=== PATIENT | male | born 1985 | race African-American/Black ===

== ENCOUNTER 2024-10-19 10:06 | Emergency (ER) | payer MEDICAID, SELFPAY ==
--- NOTE | ~2024-10-19 | CT_ITS ---
EXAMINATION: CT ABDOMEN AND PELVIS WITH CONTRAST CLINICAL INFORMATION: Left lower quadrant abdominal pain. COMPARISON: None available. TECHNIQUE: Multidetector volumetric images were obtained from the superior aspect of the liver through the pubic symphysis following administration 85 mL of Omnipaque 350 intravenous contrast. Sagittal and coronal reformatted images were obtained on the technologist's workstation. Oral contrast: No This CT examination was performed using dose optimization techniques as appropriate, variously including the following: *Automated exposure control *Adjustment of mA and/or kV according to patient size (this includes techniques or standardized protocols for targeted exams where dose is matched to indication/reason for exam; i.e. extremities or head) *Use of iterative reconstruction technique FINDINGS: LUNG BASES: The visualized lung bases are unremarkable. LIVER, GALLBLADDER, AND BILIARY TREE: The liver is normal in size, shape, and attenuation. No focal hepatic lesion or biliary ductal dilatation is present. The gallbladder is unremarkable with no evidence of radiopaque gallstones, gallbladder wall thickening, or obvious pericholecystic inflammatory changes. PANCREAS: Unremarkable. SPLEEN: Unremarkable. ADRENAL GLANDS: Unremarkable. KIDNEYS AND URETERS: The kidneys are normal in size, shape, and attenuation. No hydronephrosis, hydroureter, or calculi seen. No perinephric stranding. BLADDER: Unremarkable. GASTROINTESTINAL TRACT: There is colonic wall thickening hyperemia involving the mid ascending colon, hepatic flexure, transverse colon, splenic flexure, and proximal descending colon. Findings are consistent with segmental colitis. There are small associated colonic mesenteric lymph nodes. There is mild hyperemia of the colonic mesentery involving the affected segments. A normal appendix is visualized. Small bowel is normal in caliber and course. No wall thickening or inflammation. No rectal abnormality. The stomach is decompressed. The duodenal sweep appears normal. ABDOMINAL WALL: No significant hernia is appreciated. LYMPH NODES: As above. No pathologic lymphadenopathy is evident. VASCULAR: Unremarkable. PELVIC VISCERA: The prostate and seminal vesicles are unremarkable. OSSEOUS STRUCTURES: No suspicious lytic or blastic bone lesions. Normal hip and SI joints. CT/CT abdomen pelvis w IV con IMPRESSION: 1. Colonic wall thickening and hyperemia of the ascending, transverse, and proximal descending colon consistent with segmental colitis. This could be infectious or inflammatory. 2. Additional ancillary findings as discussed. Electronically signed by: Mike Pruitt MD 10/19/2024 01:12 PM EDT RP
[2024-10-19 10:10] VITALS: BP 120/82; PULSE 91; RESP 18; TEMP 36.3; O2SAT 97; BMI 31.4
[2024-10-19 11:19] LABS: MANUAL DIFF FLAG NO
--- NOTE | 2024-10-19 11:22 | ED.ABDPAIN ---
HPI - Abdominal Pain General Chief Complaint: Abdominal Pain Stated Complaint: Stomach Pain Time Seen by Provider: 10/19/24 12:12 Source: patient and old records reviewed Mode of arrival: ambulatory Limitations: no limitations History of Present Illness ED Provider: WILLIAM GARCIA narrative: 39 yo male with no PMH here with c/o 2 days of low back pain low abd pain and diarrhea with subj fevers but no bloody stools. Started after eating a quesadilla but family ate it as well and no illness. No recent travel, procedures, abx use. He has never had anything like this before. MD elicited complaint: abdominal pain Pertinent past history: none Onset (ago): day(s) (2) Pain Consistency: constant Location: suprapubic Severity: moderate Quality: cramping and aching Migration to: no migration Exacerbating factors: movement Relieving factors: nothing Context: possible food poisoning Associated symptoms: nausea and diarrhea Related Data Previous Rx's ?Medication ?Instructions ?Recorded hydrocodone 5 mg-acetaminophen 325 1 tab PO Q6H PRN pain #10 tabs 10/19/24 mg tablet ondansetron 4 mg disintegrating 4 mg PO Q8H PRN nausea and 10/19/24 tablet vomiting #20 tabs Allergies Allergy/AdvReac Type Severity Reaction Status Date / Time No Known Allergies Allergy Verified 10/19/24 10:15 Review of Systems Review of Systems Constitutional : No Weight loss, pos Fever, pos Chills ENT/Mouth : No sore throat, No Rhinorrhea Eyes: No Swelling, No Redness Cardiovascular : No Chest Pain, No SOB, NoEdema Respiratory : No Cough, No Sputum, No Wheezing Gastrointestinal : Positive Nausea, no Vomiting, positive Diarrhea, positive abdominal Pain, No Hematochezia, No Melena Genitourinary : No Dysuria, No Urinary Frequency, No Hematuria, No Urgency Musculoskeletal : No joint pain, No Myalgias, No Joint Swelling Skin : No Skin Lesions, No rash Neuro : No Weakness, No Numbness, No Dizziness, No Headache All other systems reviewed and are negative. [facility] Past Medical History Attestation statement: The following information was validated with the patient. Social History Social History Advance Directives: No Advance Directives Information Provided: Yes Do you have a plan to hurt others: No Plan Physical Exam ED Vital Signs: Vital Signs - 24 hr 10/19/24 10:10 10/19/24 12:21 Temperature 97.3 F Pulse Rate 91 76 Respiratory Rate 18 14 Blood Pressure 120/82 114/81 Pulse Oximetry 97 100 Oxygen Delivery Method Room Air Room Air BMI result Body Mass Index 31.4 Appearance: Alert. Oriented X3. No acute distress. Eyes: Pupils equal, round and reactive to light. ENT: Pharynx normal. Neck: Normal inspection. Neck supple. CVS: Normal heart rate and rhythm. Pulses normal. Respiratory: No respiratory distress. Breath sounds normal. Abdomen: Soft and moderate Skin: Skin warm and dry. Normal skin color. Normal skin turgor. Extremities: No lower extremity edema. No calf ttp Neuro: Oriented X 3. No motor deficit. No sensory deficit. CN2-12 intact Course Course Course Narrative: 10/19/24 1122 SARAY Garcia This is a Rapid Medical Examination (RME) performed by Misael Cali PA-C in triage. Full HPI, ROS, assessment and treatment plan per primary provider in the Main ED. Hx: 39 yo M here for eval of low back pain, nonbloody diarrhea, subjective fevers/chills, and dec PO intake x3 days. no N/V. no abd surgeries. Plan: labs, UA, viral swabs Medical Decision Making Medical Decision Making [facility] Narrative: 39 yo male with no PMH here with c/o LLQ pain and nonbloody stools with subj fevers x 2 days after eating quesadilla. At this time will obtain labs, CT scan and start on IVF and supportive medications. Differential Diagnosis Differential Diagnoses: The differential diagnosis associated with the presentation includes colitis, viral syndrome, diverticulitis Admission/Observation Consideration of admission/observation: Escalation of care including admission/observation considered no fevers today, no blood stools no wbc count will provide supportive care and hold off abx Lab Data [facility] Lab Attestation statement: I reviewed the patient's lab results. 10/19/24 11:14 10/19/24 11:14 Labs: Lab Results 10/19/24 10/19/24 Range/Units 11:14 12:17 WBC 8.1 (4.8-10.8) X10*3/uL RBC 4.99 (4.60-5.80) X10*6/uL Hgb 15.5 (14.0-18.0) g/dl Hct 43.6 (42.0-52.0) % MCV 87.4 (80.0-98.0) fL MCH 31.1 (27.0-33.0) pg MCHC 35.6 (31.0-36.0) g/dl RDW 11.8 (11.0-16.0) % Plt Count 238 (160-400) X10*3/uL MPV 8.9 L (9.4-12.4) fL Immature Gran % (Auto) 0.2 (0.0-0.4) % Neut % (Auto) 71.8 (45-73) % Lymph % (Auto) 14.1 L (20-40) % Ralls % (Auto) 8.3 (2-11) % Eos % (Auto) 4.6 H (0-4) % Baso % (Auto) 1.0 (0-2) % Lymph # (Auto) 1.1 L (1.2-4.9) X10*3/uL Ralls # (Auto) 0.7 (0.1-1.2) X10*3/uL Eos # (Auto) 0.4 (0.0-0.4) X10*3/uL Baso # (Auto) 0.1 (0.0-0.2) X10*3/uL Abs Immat Gran (auto) 0.02 (0.00-0.03) X10*3/uL Absolute Neuts (auto) 5.8 (2.0-8.3) x10*3/uL Absolute Nucleated RBC 0.000 (0.0-0.012) X10*3/uL Nucleated RBC % (auto) 0.0 (0.0-0.2) /100WBC Sodium 140 (135-145) mmol/L Potassium 4.4 (3.3-5.1) mmol/L Chloride 108 (96-108) mmol/L Carbon Dioxide 26 (22-29) mmol/L Anion Gap 10 L (12-20) BUN 10 (9-16) mg/dL Creatinine 0.80 (0.5-1.4) mg/dL Estim Creat Clear Calc 131.6 Estimated GFR > 60 Random Glucose 87 (60-115) mg/dL Calcium 9.3 (8.4-10.2) mg/dL Magnesium 2.0 (1.6-2.6) mg/dL Total Bilirubin 0.6 (0.0-1.0) mg/dL Direct Bilirubin 0.3 (0.0-0.5) mg/dL AST 33 (5-37) U/L ALT 54 H (0-40) U/L Alkaline Phosphatase 48 (39-117) U/L Total Protein 7.6 (6.5-8.0) g/dL Albumin 4.6 (3.5-5.0) g/dL Lipase 83 H (8-78) U/L Influenza Type A (PCR) NEGATIVE (Negative) Influenza Type B (PCR) NEGATIVE (Negative) RSV RNA Qual (PCR) NEGATIVE (Negative) SARS-CoV-2 RNA (RT-PCR) NEGATIVE (Negative) Independent Interpretation I performed an independent interpretation of an: CT Scan (colitis) Radiology Impression Discussion of test interpretation with radiology: I have reviewed the radiologist's reading. Prescription Management I considered prescription management with: Pain Medication, Antibiotic and Other Medications Administered Discontinued Medications Generic Name Dose Route Start Last Admin Trade Name Freq PRN Reason Stop Dose Admin Lactated Ringer's 1,000 mls @ 999 mls/hr 10/19/24 12:23 10/19/24 12:48 Lr IV 10/19/24 13:23 999 mls/hr .Q1H1M ONE Administration Iohexol 85 ml 10/19/24 12:56 10/19/24 12:56 Iohexol 350 Mg/Ml 100 Ml Infus..Btl IV 10/19/24 12:57 85 ml ONCE ONE Administration Ketorolac Tromethamine 15 mg 10/19/24 12:23 10/19/24 12:47 Ketorolac Tromethamine 15 Mg/Ml Vial IVPUSH 10/19/24 12:24 15 mg ONCE ONE Administration Discharge Plan Discharge Clinical Impression: Colitis Patient Disposition: Home, Self-Care Instructions: Acute Diarrhea (ED), Colitis (ED) Additional Instructions: drink plenty of fluids bland diet for 3 days stay hydrated return for fevers, bloody stools, severe pain this should be self limiting given you are healthy Prescriptions: New hydrocodone-acetaminophen 5-325 mg tablet 1 tab PO Q6H PRN (Reason: pain) Qty: 10 0RF Rx Instructions: partial fill okay; Partial Fill upon patient request. ondansetron 4 mg tablet,disintegrating 4 mg PO Q8H PRN (Reason: nausea and vomiting) Qty: 20 0RF Print Language: Bhutanese
[2024-10-19 11:24] LABS: Basophils Absolute Auto 0.1 X10*3/uL (0.0-0.2); Eosinophils Absolute Auto 0.4 X10*3/uL (0.0-0.4); Eosinophils Percent Auto 4.6 % (0-4); Hematocrit 43.6 % (42.0-52.0); Hemoglobin 15.5 g/dl (14.0-18.0); Imm Gran Abs Auto 0.02 X10*3/uL (0.00-0.03); Imm Gran Pct Auto 0.2 % (0.0-0.4); Lymphocytes Absolute Auto 1.1 X10*3/uL (1.2-4.9); Lymphocytes Percent Auto 14.1 % (20-40); Mean Corpuscular HGB Conc 35.6 g/dl (31.0-36.0); Mean Corpuscular Hemoglobin 31.1 pg (27.0-33.0); Mean Corpuscular Volume 87.4 fL (80.0-98.0); Mean Platelet Volume 8.9 fL (9.4-12.4); Monocytes Absolute Auto 0.7 X10*3/uL (0.1-1.2); Monocytes Percent Auto 8.3 % (2-11); Neutrophils Absolute Auto 5.8 x10*3/uL (2.0-8.3); Neutrophils Percent Auto 71.8 % (45-73); Platelet Count 238 X10*3/uL (160-400); Red Blood Count 4.99 X10*6/uL (4.60-5.80); Red Cell Distribution Width 11.8 % (11.0-16.0); White Blood Count 8.1 X10*3/uL (4.8-10.8)
[2024-10-19 11:45] LABS: Alanine Aminotransferase 54 U/L (0-40); Albumin Level 4.6 g/dL (3.5-5.0); Anion Gap 10 (12-20); Aspartate Amino Transferase 33 U/L (5-37); Bilirubin Direct 0.3 mg/dL (0.0-0.5); Bilirubin Total 0.6 mg/dL (0.0-1.0); Blood Urea Nitrogen 10 mg/dL (9-16); Calcium 9.3 mg/dL (8.4-10.2); Carbon Dioxide 26 mmol/L (22-29); Chloride 108 mmol/L (96-108); Creatinine Clr Calc Pharmacy 131.6; Estimated Glomerular Filt Rate > 60; Glucose Random 87 mg/dL (60-115); Lipase 83 U/L (8-78); Potassium 4.4 mmol/L (3.3-5.1); Sodium 140 mmol/L (135-145); Total Protein 7.6 g/dL (6.5-8.0)
[2024-10-19 11:56] LABS: Alkaline Phosphatase 48 U/L (39-117)
[2024-10-19 12:21] VITALS: BP 114/81; PULSE 76; RESP 14; O2SAT 100
[2024-10-19] MEDS: Ketorolac Tromethamine 15 MG/ML VIAL IVPUSH (12:47)
[2024-10-19] MEDS: Lactated Ringers 1,000 ML 999 ML IV (12:48)
[2024-10-19] MEDS: iohexoL 350 MG/ML 100 ML INFUS..BTL 85 ML IV (12:56)
[2024-10-19 13:10] LABS: Influenza A PCR NEGATIVE (Negative); Influenza B PCR NEGATIVE (Negative); Resp Syncy Virus RNA Qual PCR NEGATIVE (Negative); SARS COV2 PCR INHOUSE NEGATIVE (Negative)
[2024-10-19 14:01] VITALS: BP 114/81; PULSE 76; RESP 14; TEMP 36.8; O2SAT 100
== END 2024-10-19 14:01 | disposition home or self-care (01) ==
PROVIDERS: Physician Assistant Medical; Emergency Provider Emergency Medicine
DX: K52.9 Noninfective gastroenteritis and colitis, unspecified (principal); R10.2 Pelvic and perineal pain; R11.2 Nausea with vomiting, unspecified; Z03.818 Encounter for observation for suspected exposure to other biological agents ruled out; Z79.899 Other long term (current) drug therapy
CPT/HCPCS: 0241U; 36415; 74177; 80053; 82248; 83690; 83735; 85025; 96361; 96374; 99284; J1885; J7120; Q9967

== ENCOUNTER → 2024-10-19 12:23 | Outpatient (BNV) | payer MEDICAID, SELFPAY | PROVIDERS: Emergency Provider Emergency Medicine; Visit Provider Radiology Diagnostic Radiology | DX: K51.918 Ulcerative colitis, unspecified with other complication (principal) | CPT/HCPCS: 74177 ==

== ENCOUNTER 2024-12-17 09:31 | Emergency (ER) | payer OTHER, SELFPAY ==
[2024-12-17 09:50] VITALS: BP 128/81; PULSE 76; RESP 18; TEMP 37; O2SAT 99; BMI 31.7
--- NOTE | 2024-12-17 11:10 | ED_ITS ---
HPI - General Adult General Chief complaint: Skin/Abscess/Foreign Body Stated complaint: Rash around whole body Time Seen by Provider: 12/17/24 10:26 Source: patient, RN notes reviewed and old records reviewed Mode of arrival: ambulatory Limitations: no limitations History of Present Illness ED Provider: Opal GARCIA narrative: 39-year-old male presents for evaluation of a rash to his left arm and bilateral legs. The rash has been there for about 4 days and is itchy. He denies any pain, denies any fevers or chills pain He denies being in the [place]. He works as a transporter driver for [employer] He notes that he has had a similar rash about 5 years ago while in [place] and was told it was ?heat rash. ? He was prescribed a topical steroid with good improvement in his rash. He also complains of mild left ear pain. Denies any drainage from the ear, denies sticking anything in the ear. He has not been swimming Related Data Previous Rx's ?Medication ?Instructions ?Recorded hydrocodone 5 mg-acetaminophen 325 1 tab PO Q6H PRN pa in #10 tabs 10/19/24 mg tablet ondansetron 4 mg disintegrating 4 mg PO Q8H PRN nausea and 10/19/24 tablet vomiting #20 tabs triamcinolone acetonide 0.5 % 1 appl topical BID #15 g angela 12/17/24 topical cream Allergies Allergy/AdvReac Type Severity Reaction Status Date / Time No Known Allergies Allergy Verified 12/17/24 09:53 Review of Systems Constitutional: Constitutional: Denies body ache(s), Denies chills, Denies fever(s) and Denies headache(s) Eyes: Eyes: Denies blurry vision ENT: Denies vertigo, Denies dizziness, Denies dry mouth, Denies ear discharge, Reports otalgia and Denies headache(s) Cardiovascular: Cardiovascular: Denies chest pain and Denies dyspnea on exertion Respiratory: Respiratory: Denies cough and Denies dyspnea on exertion Gastrointestinal: Gastrointestinal: Denies abdominal pain Integumentary/Breasts: Skin/Breast: Reports erythema and Reports rash Neurologic: Denies confusion, Denies vertigo, Denies dizziness and Denies headache(s) Psychiatric: Psychiatric: Denies anxiety and Denies confusion [facility] Social History Social History Advance Directives: No Advance Directives Information Provided: Yes Physical Exam ED Vital Signs: Vital Signs - 24 hr 12/17/24 09:50 12/17/24 11:20 Temperature 98.6 F 98.6 F Pulse Rate 76 76 Respiratory Rate 18 18 Blood Pressure 128/81 128/81 Pulse Oximetry 99 99 Oxygen Delivery Method Room Air Room Air BMI result Body Mass Index 31.7 Const General: No confusion Nutritional Appearance: well nourished Orientation/consciousness: No confusion HENMT Other: There is no mastoid tenderness bilaterally, no pre or postauricular edema Head: Yes normocephalic and Yes atraumatic Ears: external ears normal, TM's normal bilaterally and EAC's normal Eyes Eyelids: Yes eyelids normal Conjunctivae: conjunctivae normal Sclerae: sclerae normal Corneas: corneas normal Pupils: Equal, round and reactive pupils present EOM: EOMs intact bilaterally Neck Neck: Yes full ROM Resp Effort & Inspection: normal respiratory effort, able to speak in complete sentences and not labored Skin Other: Maculopapular rash noted to the left forearm in the crease of the elbow, right groin. No significant excoriations, no drainage, no fluctuance or induration. General skin exam: elasticity normal Neuro General: No confusion Cranial nerves: Yes Equal, round and reactive pupils present and Yes Bilaterally intact EOM present Cognition (Neuro): normal cognition Extrem Other: Moving all extremities well without any obvious deformities Medical Decision Making Medical Decision Making MDM Narrative: 39-year-old male presents for evaluation of a rash. His rash is consistent with a inflammatory dermatitis, no evidence of infectious process. He reports that his similar to her previous he rash he has had that resolved with topical steroids. We will treat the same. He does have left ear pain but no evidence of otitis media, otitis externa or mastoiditis. I did encourage the patient to use a few drops of white vinegar twice a day if his pain continues and return precautions were given Differential Diagnosis Differential Diagnoses: The differential diagnosis associated with the presentation includes Dermatitis Cellulitis Contact dermatitis Eczema Psoriasis Otitis media Otitis externa Mastoiditis Discharge Plan Discharge Clinical Impression: Acute dermatitis Patient Disposition: Home, Self-Care Instructions: Dermatitis (ED) Additional Instructions: Your rash is consistent with a dermatitis which could be a heat rash. You may use the triamcinolone twice daily for 1 week. Return to the ER if you develop any new or worsening symptoms, especially fevers. There was no obvious infection in your ear or around the ear. Prescriptions: New triamcinolone acetonide 0.5 % cream 1 appl topical BID Qty: 15 0RF No Action hydrocodone-acetaminophen 5-325 mg tablet 1 tab PO Q6H PRN (Reason: pain) Qty: 10 0RF Rx Instructions: partial fill okay; Partial Fill upon patient request. ondansetron 4 mg tablet,disintegrating 4 mg PO Q8H PRN (Reason: nausea and vomiting) Qty: 20 0RF Stand Alone Forms: Work/School Release Interventions: ED Discharge Assessment Last Done: 12/17/24 11:20 Discharge Date/Time: 12/17/24 11:20 Print Language: Greenlandic
[2024-12-17 11:20] VITALS: BP 128/81; PULSE 76; RESP 18; TEMP 37; O2SAT 99
== END 2024-12-17 11:20 | disposition home or self-care (01) ==
PROVIDERS: Emergency Provider Emergency Medicine Emergency Medical Services
DX: L30.9 Dermatitis, unspecified (principal); R21 Rash and other nonspecific skin eruption
CPT/HCPCS: 99282; 99283

== ENCOUNTER 2024-12-21 07:37 | Emergency (ER) | payer OTHER, SELFPAY ==
--- NOTE | ~2024-12-21 | CT_ITS ---
EXAMINATION: CT TEMPORAL BONES. CLINICAL INFORMATION: Left ear pain, mastoid tip. COMPARISON: No priors. TECHNIQUE: Contiguous axial images through the temporal bones with bone algorithm. Sagittal and coronal reformatted images acquired. This CT examination was performed using dose optimization techniques as appropriate, variously including the following: *Automated exposure control *Adjustment of mA and/or kV according to patient size (this includes techniques or standardized protocols for targeted exams where dose is matched to indication/reason for exam; i.e. extremities or head) *Use of iterative reconstruction technique. DLP: 200 mGy centimeter. FINDINGS: RIGHT TEMPORAL BONE: External auditory canal demonstrates a focal serum and the cartilage/osseous segment junction. Tympanic membrane: No thickened. Tympanic cavity: Well pneumatized and aerated. Ossicles: Intact and articulated. Sinus tympani: Aerated. Oval window and round window: Aerated. Tegmen tympani: Intact. Scutum: Intact. Labyrinthine, geniculate, tympanic and mastoid segments of the facial nerve canal: Intact. Aditus at antrum and mastoid antrum: Aerated. Mastoid air cells: Well pneumatized and aerated. Cochlear: Intact and normal 2 1/2 turns. Vestibule and semicircular canals: Intact. Internal auditory canal: Intact and not enlarged. Carotid canal: Intact. Jugular foramen: Intact. Cochlear and vestibular aqueducts: Not enlarged. Temporomandibular joint: Intact. LEFT TEMPORAL BONE: External auditory canal: Aerated. No focal stenosis or gross masses.. Tympanic membrane: No thickened. Tympanic cavity: Well pneumatized and aerated. Ossicles: Intact and articulated. Sinus tympani: Aerated. Oval window and round window: Aerated. Tegmen tympani: Intact. Scutum: Intact. Labyrinthine, geniculate, tympanic and mastoid segments of the facial nerve canal: Intact. Aditus at antrum and mastoid antrum: Aerated. Mastoid air cells: Well pneumatized. Minimal air-fluid levels in the mastoid tip.. Cochlear: Intact and normal 2 1/2 turns. Vestibule and semicircular canals: Intact. Internal auditory canal: Intact and not enlarged. Carotid canal: Intact. Jugular foramen: Intact. Cochlear and vestibular aqueducts: Not enlarged. Temporomandibular joint: Intact. ANCILLARY FINDINGS: No gross masses or fluid collections in the intraconal or extraconal compartments of the orbits. The eyeballs are intact. 7 mm retention cysts versus polyp, left frontal ethmoid recess. 5 mm retention cysts versus polyp superior wall of the left maxillary sinus. Mucosal thickening obstructing the left ostiomeatal complex. Mild mucosal thickening, right maxillary sinus is stent to right ostiomeatal complex. [place], left middle turbinate. Engorged middle and inferior turbinates obstructing the nasal cavity. No air-fluid levels in the paranasal sinuses. Nonspecific prominent intraparenchymal lymph nodes, parotid glands. No gross masses in the skull base, nasopharynx, retropharynx or parapharyngeal compartments. Probable old traumatic deformities in the nasal bones. CT/CT orbit BI wo IV con IMPRESSION: Minimal air-fluid levels, left mastoid tip. Cerumen, right external auditory canal. Small retention cysts versus polyps, left maxillary and left frontal ethmoid recess. Inflammatory processes rather chronic/old obstructing left ostiomeatal complex. Electronically signed by: Juventino Gaytan MD 12/21/2024 09:34 AM EDT
[2024-12-21 07:43] VITALS: BP 141/83; PULSE 88; RESP 16; TEMP 36.1; O2SAT 98; BMI 30.7
--- NOTE | 2024-12-21 07:45 | ED_ITS ---
HPI - Ear Problem General Chief complaint: Ear Problems Stated complaint: Infection in Head Time Seen by Provider: 12/21/24 09:38 Source: patient Mode of arrival: ambulatory Limitations: no limitations History of Present Illness ED Provider: WILLIAM GARCIA Narrative: 39 yo male with no sig PMH deals with chronic rash has responded to triamcinolone but no known hx of MRSA now has rash and swelling to L ext ear mild but he notes now he has pain in L ear and mastoid area but no swelling. He denies trauma. He notes he had this in [place] in the past and he was told it was zoster but the rash in pictures were on both sides of the face. He also is asking for refill of triamincinolone has chronic intermittent rash and it works well for him. No fevers, no trauma, pain isolated to L ear MD Complaint: ear pain Location: left ear Duration: constant Severity: moderate Relieving factors: nothing Exacerbating factors: palpation Context: other Discharge from ear: no Associated symptoms ear: headache and external ear tenderness Treatment prior to arrival: none Related Data Previous Rx's ?Medication ?Instructions ?Recorded hydrocodone 5 mg-acetaminophen 325 1 tab PO Q6H PRN pa in #10 tabs 10/19/24 mg tablet ondansetron 4 mg disintegrating 4 mg PO Q8H PRN nausea and 10/19/24 tablet vomiting #20 tabs triamcinolone acetonide 0.5 % 1 appl topical BID #15 g angela 12/17/24 topical cream amoxicillin 875 mg-potassium 1 tab PO BID #14 tabs 01/07 clavulanate 125 mg tablet mupirocin 2 % topical ointment 1 appl topical BID 7 da ys #15 grams 12/21/24 triamcinolone acetonide 0.1 % 1 appl topical DAILY #30 grams 12/21/24 topical cream Allergies Allergy/AdvReac Type Severity Reaction Status Date / Time No Known Allergies Allergy Verified 12/21/24 07:45 Review of Systems 2 Review of Systems: Constitutional : No Fever, No Chills, No Fatigue ENT/Mouth : No sore throat, No Rhinorrhea, pos ear pain Eyes: No Eye Pain, No Swelling, No Redness Cardiovascular : No Chest Pain, No SOB, No Dyspnea on Exertion Respiratory : No Cough, No Sputum Gastrointestinal : No Nausea, No Vomiting, No Diarrhea, No abdominal Pain Musculoskeletal : No joint pain, No Myalgias, No Joint Swelling Skin : No Skin Lesions, No rash Neuro : No Weakness, No Numbness, No Dizziness, positive Headache All other systems reviewed and are negative [facility] Past Medical History Attestation statement: The following information was validated with the patient. Source: old records reviewed Medical History (Updated 12/21/24 @ 09:44 by Caty Arciniega DO) Dermatitis Social History Social History (Updated 12/21/24 @ 09:44 by Caty Arciniega DO) Patient Tobacco Use Status: Never used Tobacco Physical Exam 2 Vital Signs: Vital Signs: Last Vital Signs Temp 97 F 12/21/24 07:43 Pulse 88 12/21/24 07:43 Resp 16 12/21/24 07:43 BP 141/83 H 12/21/24 07:43 Pulse Ox 98 12/21/24 07:43 O2 Del Method Room Air 12/21/24 07:43 BMI result Body Mass Index 30.7 Appearance: Alert. Oriented X3. No acute distress. Eyes: Pupils equal, round and reactive to light. ENT: Pharynx normal. L TM normal ext ear rash noted mild erythema mild warmth, mild mastoid ttp but no swelling no lymphadenopathy. Neck: Normal inspection. Neck supple. CVS: Normal heart rate and rhythm. Pulses normal. Respiratory: No respiratory distress. Breath sounds normal. Abdomen: Soft and nontender. Skin: Skin warm and dry. Normal skin color. Normal skin turgor. Extremities: No lower extremity edema. No calf ttp Neuro: Oriented X 3. No motor deficit. No sensory deficit. CN2-12 intact Course Course Course Narrative: 39 yo male with no sig PMH deals with chronic rash has responded to triamcinolone but no known hx of MRSA now has rash and swelling to L ext ear mild but he notes now he has pain in L ear and mastoid area but no swelling. He denies trauma. He [place] he [place] this [place] in the [place] and he was told it was zoster but the rash in pictures were on both sides of the face WILLIAM 12/21/24 747am Medical Decision Making Medical Decision Making MDM Narrative: 39 yo male with no sig PMH other than intermittent chronic rash does not have PCP now here with c/o L ear pain has signs of no vesicles but mild erythema and warmth no AOM. Has mild mastoid ttp but no effusion he is not toxic appearing I am going to obtain CT scan of mastoid if negative start on mupirocin and augmentin for suspected sinusitis. Differential Diagnosis Differential Diagnoses: The differential diagnosis associated with the presentation includes sinusitis, mastoiditis, celllulitis Admission/Observation Consideration of admission/observation: Escalation of care including admission/observation considered not toxic can be managed with oral abx Independent Interpretation I performed an independent interpretation of an: CT Scan (kellogg sinusitis nothing to suggest acute mastoiditis) Radiology Impression Discussion of test interpretation with radiology: I have reviewed the radiologist's reading. Independent Historian Clinical information obtained from an independent historian. History obtained from or confirmed by: Spouse External Record Review External record reviewed: Outpatient record Prescription Management I considered prescription management with: Antibiotic and Other Discharge Plan Discharge Clinical Impression: Acute pansinusitis, Cellulitis of external ear Patient Disposition: Home, Self-Care Instructions: Cellulitis (ED), Rhinosinusitis (ED) Additional Instructions: diffuse sinus swelling no signs acute pathology recheck your symptoms in 2 weeks given the gland swelling CT/CT orbit BI wo IV con IMPRESSION: Minimal air-fluid levels, left mastoid tip. Cerumen, right external auditory canal. Small retention cysts versus polyps, left maxillary and left frontal ethmoid recess. Inflammatory processes rather chronic/old obstructing left ostiomeatal complex. On amoxicillin-clavulanate, softer bowel movements are to be expected. Call your provider if you move your bowels more than 4 times a day, your bowel movements are almost all liquid, or you get a rash.? Prescriptions: New mupirocin 2 % ointment 1 appl topical BID 7 Days Qty: 15 0RF amoxicillin-pot clavulanate 875-125 mg tablet 1 tab PO BID Qty: 14 0RF triamcinolone acetonide 0.1 % cream 1 appl topical DAILY Qty: 30 1RF No Action hydrocodone-acetaminophen 5-325 mg tablet 1 tab PO Q6H PRN (Reason: pain) Qty: 10 0RF Rx Instructions: partial fill okay; Partial Fill upon patient request. ondansetron 4 mg tablet,disintegrating 4 mg PO Q8H PRN (Reason: nausea and vomiting) Qty: 20 0RF triamcinolone acetonide 0.5 % cream 1 appl topical BID Qty: 15 0RF Print Language: Slovak
[2024-12-21 09:43] VITALS: BP 141/83; PULSE 88; RESP 16; TEMP 36.1; O2SAT 98
== END 2024-12-21 09:46 | disposition home or self-care (01) ==
LOC: HO.ED 09:43
PROVIDERS: Emergency Provider Emergency Medicine
DX: J32.4 Chronic pansinusitis (principal); H60.12 Cellulitis of left external ear; H92.02 Otalgia, left ear; R21 Rash and other nonspecific skin eruption
CPT/HCPCS: 70480; 99282; 99284

== ENCOUNTER → 2024-12-21 07:44 | Outpatient (BNV) | payer OTHER, SELFPAY | PROVIDERS: Emergency Provider Emergency Medicine; Visit Provider Radiology Diagnostic Radiology | DX: H92.02 Otalgia, left ear (principal) | CPT/HCPCS: 70480 ==